=== PATIENT | male | born 1935 | race Hispanic/Latino ===

== ENCOUNTER 2016-08-26 16:40 | Outpatient (CLI) | payer MEDICARE, OTHER ==
[2016-08-26 17:18] LABS: Albumin 4.1 g/dL (3.9-5); Albumin/Globulin Ratio 1.5 %; BUN/Creatinine Ratio 18.75; Basophils % (Auto) 0.8 % (0.0-1.8); Bilirubin,Total 0.4 mg/dL (0.1-1.2); Calcium 9.4 mg/dL (8.4-10.2); Chloride 100.2 mmol/L (98-107); Eosinophils % (Auto) 4.6 % (0.0-4.3); Hematocrit 42.5 % (35.5-45.6); Hemoglobin 13.9 gm/dl (11.8-15.2); Mean Corpuscular HGB Conc 33 % (32-34); Mean Corpuscular Hemoglobin 30 pg (28-32); Mean Corpuscular Volume 92 fl (84-94); Platelet Count 208 K/mm3 (140-440); Potassium 4.7 mmol/L (3.6-5.0); Red Cell Distribution Width 15.3 % (13.2-15.2); Total Protein 6.8 g/dL (6.3-8.2); White Blood Count 6.5 K/mm3 (4.5-11.0)
[2016-08-29 18:39] LABS: Vitamin D, 25-OH, Total 70 ng/mL (30-100)
== END 2016-08-26 16:41 | disposition home or self-care (01) ==
LOC: LAB 16:40
PROVIDERS: ATTEND Internal Medicine Nephrology
DX: I12.9 Hypertensive chronic kidney disease with stage 1 through stage 4 chronic kidney disease, or unspecified chronic kidney disease (principal); N18.3 Chronic kidney disease, stage 3 (moderate); D64.9 Anemia, unspecified; K21.9 Gastro-esophageal reflux disease without esophagitis; I45.6 Pre-excitation syndrome; E55.9 Vitamin D deficiency, unspecified; R60.9 Edema, unspecified; R80.9 Proteinuria, unspecified; E87.5 Hyperkalemia; F10.10 Alcohol abuse, uncomplicated; R73.01 Impaired fasting glucose
CPT/HCPCS: 36415; 80053; 82043; 82306; 83970; 85025

== ENCOUNTER 2018-02-27 16:17 | Outpatient (CLI) | payer MEDICARE, OTHER ==
[2018-02-27 16:37] LABS: Basophils # (Auto) 0.1 K/mm3 (0.0-0.1); Basophils % (Auto) 0.8 % (0.0-1.8); Eosinophils # (Auto) 0.3 K/mm3 (0.0-0.4); Eosinophils % (Auto) 4.3 % (0.0-4.3); Hematocrit 39.9 % (35.5-45.6); Hemoglobin 13.2 gm/dl (11.8-15.2); Lymphocytes # (Auto) 2.7 K/mm3 (1.2-5.4); Lymphocytes % (Auto) 38.4 % (13.4-35.0); Mean Corpuscular HGB Conc 33 % (32-34); Mean Corpuscular Volume 96 fl (84-94); Monocytes # (Auto) 0.5 K/mm3 (0.0-0.8); Monocytes % (Auto) 6.6 % (0.0-7.3); Platelet Count 200 K/mm3 (140-440); Red Blood Count 4.15 M/mm3 (3.65-5.03); Red Cell Distribution Width 14.6 % (13.2-15.2)
[2018-02-27 16:58] LABS: Bacteria,Urine 1+ /HPF (Negative); Bilirubin,Urine NEG (Negative); Blood,Urine NEG (Negative); Color,Urine Yellow (Yellow); Hyaline Casts,Urine 3 /LPF; Mucus,Urine FEW /HPF; Protein,Urine <15 mg/dL mg/dL (Negative); Urobilinogen,Urine < 2.0 mg/dL (<2.0)
[2018-02-27 17:08] LABS: Albumin 4.3 g/dL (3.9-5); Calcium 9.7 mg/dL (8.4-10.2)
== END 2018-02-27 16:18 | disposition home or self-care (01) ==
LOC: LAB 16:17
PROVIDERS: ATTEND Internal Medicine Nephrology
DX: I12.9 Hypertensive chronic kidney disease with stage 1 through stage 4 chronic kidney disease, or unspecified chronic kidney disease (principal); N18.3 Chronic kidney disease, stage 3 (moderate); K21.9 Gastro-esophageal reflux disease without esophagitis; E55.9 Vitamin D deficiency, unspecified
CPT/HCPCS: 36415; 80048; 81001; 82040; 83970; 84100; 85025

== ENCOUNTER 2018-09-25 10:39 | Outpatient (CLI) | payer MEDICARE, OTHER ==
[2018-09-25 11:04] LABS: Basophils # (Auto) 0.1 K/mm3 (0.0-0.1); Basophils % (Auto) 0.9 % (0.0-1.8); Eosinophils # (Auto) 0.3 K/mm3 (0.0-0.4); Hematocrit 41.3 % (35.5-45.6); Hemoglobin 14.1 gm/dl (11.8-15.2); Lymphocytes # (Auto) 2.5 K/mm3 (1.2-5.4); Mean Corpuscular HGB Conc 34 % (32-34); Mean Corpuscular Volume 95 fl (84-94); Monocytes # (Auto) 0.4 K/mm3 (0.0-0.8); Monocytes % (Auto) 5.4 % (0.0-7.3); Platelet Count 256 K/mm3 (140-440); Red Blood Count 4.37 M/mm3 (3.65-5.03); Red Cell Distribution Width 14.8 % (13.2-15.2)
[2018-09-25 11:30] LABS: Albumin 4.7 g/dL (3.9-5); Calcium 11.5 mg/dL (8.4-10.2)
== END 2018-09-25 10:40 | disposition home or self-care (01) ==
LOC: LAB 10:39
PROVIDERS: ATTEND Internal Medicine Nephrology
DX: I12.9 Hypertensive chronic kidney disease with stage 1 through stage 4 chronic kidney disease, or unspecified chronic kidney disease (principal); N18.3 Chronic kidney disease, stage 3 (moderate); R60.9 Edema, unspecified; D64.9 Anemia, unspecified; I45.6 Pre-excitation syndrome; E87.5 Hyperkalemia; E55.9 Vitamin D deficiency, unspecified
CPT/HCPCS: 36415; 80053; 83735; 85025

== ENCOUNTER 2018-10-24 14:18 | Outpatient (CLI) | payer MEDICARE, OTHER ==
[2018-10-24 16:37] LABS: Albumin 4.9 g/dL (3.9-5); Calcium 10.6 mg/dL (8.4-10.2)
--- NOTE | 2018-10-24 17:49 | Ultrasound Report ---
ULTRASOUND RENAL INDICATION: N18.3 CKD STAGE 3. COMPARISON: Ultrasound dated 05/08/2015. FINDINGS: RIGHT KIDNEY: Size: 9.7 cm. Echogenicity: Normal. Cortical thickness: Normal. Stones: None. Hydronephrosis: None. Cyst or mass: There is a 1.8 cm cyst. LEFT KIDNEY: Size: 10.4 cm. Echogenicity: Normal. Cortical thickness: Normal. Stones: None. Hydronephrosis: None. Cyst or mass: There is a 2.5 cm cyst and a 1.3 cm cyst. Urinary Bladder: No significant abnormality. Prevoid bladder volume is 303 cc. Post void volume is 25 cc. Free Fluid: None. Additional Findings: None. IMPRESSION 1. No acute sonographic abnormality of the kidneys. Signer Name: Real Villavicencio MD Signed: 10/24/2018 5:44 PM Workstation Name: [id number]
[2018-10-27 22:30] LABS: Albumin 4.6 g/dL (3.8-4.8); Gamma Globulin 0.9 g/dL (0.8-1.7)
[2018-10-28 19:17] LABS: Vitamin D, 25-OH, D2 <4 ng/mL
== END 2018-10-24 14:19 | disposition home or self-care (01) ==
LOC: US 14:18
PROVIDERS: ATTEND Internal Medicine Nephrology
DX: N28.1 Cyst of kidney, acquired (principal); N18.3 Chronic kidney disease, stage 3 (moderate); R97.20 Elevated prostate specific antigen [PSA]
CPT/HCPCS: 36415; 76770; 76857; 80048; 82040; 82306; 83970; 84100; 84153; 84165; 86334

== ENCOUNTER 2019-04-19 17:14 | Outpatient (CLI) | payer MEDICARE, OTHER ==
[2019-04-19 17:47] LABS: Basophils # (Auto) 0.1 K/mm3 (0.0-0.1); Basophils % (Auto) 1.3 % (0.0-1.8); Eosinophils # (Auto) 0.3 K/mm3 (0.0-0.4); Eosinophils % (Auto) 4.2 % (0.0-4.3); Hematocrit 38.7 % (35.5-45.6); Hemoglobin 13.2 gm/dl (11.8-15.2); Lymphocytes # (Auto) 2.4 K/mm3 (1.2-5.4); Lymphocytes % (Auto) 36.4 % (13.4-35.0); Mean Corpuscular HGB Conc 34 % (32-34); Mean Corpuscular Volume 92 fl (84-94); Monocytes # (Auto) 0.5 K/mm3 (0.0-0.8); Monocytes % (Auto) 7.1 % (0.0-7.3); Platelet Count 219 K/mm3 (140-440); Red Blood Count 4.21 M/mm3 (3.65-5.03); Red Cell Distribution Width 13.9 % (13.2-15.2)
[2019-04-19 18:12] LABS: Albumin 4.5 g/dL (3.9-5); Calcium 10.4 mg/dL (8.4-10.2)
== END 2019-04-19 17:15 | disposition home or self-care (01) ==
LOC: LAB 17:14
PROVIDERS: ATTEND Internal Medicine Nephrology
DX: I12.9 Hypertensive chronic kidney disease with stage 1 through stage 4 chronic kidney disease, or unspecified chronic kidney disease (principal); N18.3 Chronic kidney disease, stage 3 (moderate); R60.9 Edema, unspecified; D64.9 Anemia, unspecified; R80.9 Proteinuria, unspecified; I45.6 Pre-excitation syndrome; K21.9 Gastro-esophageal reflux disease without esophagitis; E87.5 Hyperkalemia; E55.9 Vitamin D deficiency, unspecified; F10.10 Alcohol abuse, uncomplicated; R73.01 Impaired fasting glucose; E83.52 Hypercalcemia; R97.20 Elevated prostate specific antigen [PSA]
CPT/HCPCS: 36415; 80053; 84153; 85025

== ENCOUNTER 2020-03-03 06:43 | Day surgery (SDC) | payer MEDICARE, OTHER ==
[2020-03-03] MEDS ORDERED: ASPIRIN EC 325 MG TAB PO SCH (08:00)
[2020-03-03] MEDS ORDERED: SODIUM CHLORIDE 0.9% 500 ML 500 ML IV SCH (08:00)
[2020-03-03 08:14] LABS: Basophils # (Auto) 0.1 K/mm3 (0.0-0.1); Basophils % (Auto) 1.2 % (0.0-1.8); Eosinophils # (Auto) 0.3 K/mm3 (0.0-0.4); Eosinophils % (Auto) 4.4 % (0.0-4.3); Hematocrit 26.1 % (35.5-45.6); Hemoglobin 8.7 gm/dl (11.8-15.2); Lymphocytes # (Auto) 2.2 K/mm3 (1.2-5.4); Lymphocytes % (Auto) 32.2 % (13.4-35.0); Mean Corpuscular HGB Conc 34 % (32-34); Mean Corpuscular Volume 86 fl (84-94); Monocytes # (Auto) 0.6 K/mm3 (0.0-0.8); Monocytes % (Auto) 8.1 % (0.0-7.3); Platelet Count 250 K/mm3 (140-440); Red Blood Count 3.04 M/mm3 (3.65-5.03); Red Cell Distribution Width 14.9 % (13.2-15.2)
[2020-03-03 08:26] LABS: Calcium 9.7 mg/dL (8.4-10.2)
[2020-03-03 08:27] LABS: INR 1.23 (0.87-1.13)
[2020-03-03] MEDS ORDERED: HEPARIN 10,000 UNITS/10 ML VIAL ONE (08:54)
[2020-03-03] MEDS ORDERED: HEPARIN/NS 5000 UNIT/500ML 1,000 ML IR ONE (08:54)
[2020-03-03] MEDS ORDERED: LIDOCAINE (2%) 20 MG/1 ML VIAL 20 ML MDV INFILTRATI ONE (08:55)
[2020-03-03] MEDS ORDERED: VERAPAMIL 5 MG/2 ML INJ ONE (08:55)
[2020-03-03] MEDS ORDERED: fentaNYL 100 MCG/2 ML INJ ONE (08:56)
[2020-03-03] MEDS ORDERED: MIDAZOLAM 2 MG/2 ML INJ ONE (08:56)
[2020-03-03] MEDS ORDERED: NITROGLYCERIN SYRINGE 3 ML ONE (08:56)
--- NOTE | 2020-03-03 10:50 | Cardiac Catherization Report ---
CARDIAC CATHETERIZATION REFERRING PHYSICIAN: Dr. Keerthi Raza. INDICATION FOR PROCEDURE: The patient is a pleasant 85-year-old gentleman, who was found to have severe aortic stenosis. He has known chronic kidney disease, referred here for left heart catheterization to further evaluate for prevalvular replacement. Risks, benefits, alternatives discussed. He does have chronic kidney disease and the most judicious use of dye is recognized. PROCEDURE IN DETAIL: The patient was brought to catheterization lab in a postabsorptive state, prepped and draped in sterile fashion. José's test in right hand was normal. A 2 mL of 2% lidocaine used to anesthetize the right wrist. A standard 6-Turkish hydrophilic sheath used to cannulate the right radial artery via modified Seldinger technique. All exchanges performed to exchange a J-tip guidewire. JL3.5 catheter used to engage the left main without difficulty. Cineangiography performed in all projections. No dampening. Next, catheter exchanged for JR4 catheter used to cross the aortic valve under fluoroscopic guidance. Left ventriculography was performed in 30 ROSE and 30 [place]AL[place] projections via hand injections, catheter flushed. Manual pullback performed with continuous pressure monitoring and engaged the right coronary. No dampening or ventricularization. Cineangiography performed in all projections. Next, catheter removed from the body of wire, sheath removed. Manual pressure used to achieve hemostasis. I directly supervised the administration of moderate sedation from 9:20 a.m. to 10:00 a.m. with fentanyl and Versed. No immediate complications. DATA: Aortic pressure is 210. LVEDP of 20 mmHg. Left ventriculography reveals normal left ventricular systolic performance, estimated ejection fraction of 60-65%. CORONARY ANATOMY: Right dominant system. Right coronary is a large vessel, courses AV groove, distally bifurcates into posterior and posterolateral branches. No discrete stenoses. Left main without significant disease, bifurcates left anterior descending and left circumflex. LAD is a moderate sized vessel, courses anterior intraventricular groove, wraps around the apex, no significant disease. Left circumflex, moderate sized vessel, courses AV groove. No significant disease. CONCLUSIONS: 1. No angiographic evidence of significant epicardial coronary disease in this right dominant system. 2. Normal left ventricular systolic performance, estimated ejection fraction of 60-65%. 3. Severe valvular aortic stenosis with a [id number] gradient of approximately 85-90 mmHg and a mean gradient of approximately 50 mmHg. I believe the patient has symptomatic severe aortic stenosis. He is also found to be mildly anemic today with a hemoglobin of 8.7, unclear of the chronicity, sees Dr. Paiz of Nephrology as his primary. I spoke with his son at length via telephone. He will be set up to see the TAVR clinic at [facility] to be evaluated for possible TAVR. Furthermore, his anemia will be addressed by his primary physician. The patient denies any recent black tarry stools or bright red blood per rectum or any obvious bleeding sources. Again, this is all discussed with his son who had multiple questions, which were answered. Follow up with Dr. Keerthi Raza in the office. JOB# [id number] VIKTORIA/MARY DELUNA
--- NOTE | 2020-03-03 11:10 | Short Stay Summary ---
Short Stay Documentation Date of service: 03/03/20 - History H&P: obtained from office - Allergies and Medications Current Medications: Allergies tetanus toxoid, adsorbed Allergy (Verified 03/03/20 07:40) Muscle numbness Oral contrast Allergy (Uncoded 03/03/20 07:40) Diarrhea Home Medications Medication Instructions Recorded Confirmed Last Taken Type Atorvastatin [Lipitor] 40 mg PO QHS 03/03/20 03/03/20 03/02/20 History 40 mg B Complex 11/Folic/C/Biot/Zinc 1 tab PO DAILY 03/03/20 03/03/20 03/02/20 History [Dialyvite with Zinc Tablet] 1 Desitin Multi-Purpose 1 tab PO DAILY 03/03/20 03/03/20 03/02/20 History 1 Lansoprazole [Prevacid] 30 mg PO DAILY 03/03/20 03/03/20 03/02/20 History 30 mg Tamsulosin [Flomax] 0.4 mg PO QDAY 03/03/20 03/03/20 03/02/20 History 0.4mg Thiamine [Vitamin B-1] 100 mg PO DAILY 03/03/20 03/03/20 03/02/20 History 100 mg Warfarin [Coumadin] 3 mg PO DAILY 03/03/20 03/03/20 02/27/20 History 3 mg carvediloL [Coreg] 12.5 mg PO BID 03/03/20 03/03/20 03/02/20 History 12.5mg clonazePAM [Klonopin] 1 mg PO BID 03/03/20 03/03/20 03/02/20 History 1 mg diphenhydrAMINE [Benadryl CAP] 25 mg PO QHS PRN 03/03/20 03/03/20 Unknown Hist ory polyethylene glycoL 3350 [Miralax 17 gm PO DAILY 03/03/20 03/03/20 03/02/20 History 3350] 17 gm Active Medications Aspirin (Aspirin Ec 325 Mg Tab) 325 mg PO ONCE WALT Stop: 03/03/20 15:00 Sodium Chloride (Nacl 0.9% 500 Ml) 500 mls @ 50 mls/hr IV DIRECT WALT Stop: 03/03/20 17:59 Last Admin: 03/03/20 09:05 Dose: 50 mls/hr Documented by: - Brief post op/procedure progress note Date of procedure: 03/03/20 Pre-op diagnosis: Post-op diagnosis: same Procedure: C - see dictated cath report Anesthesia: local Estimated blood loss: none Condition: stable - Disposition Condition at discharge: Good Disposition: [id number] TO HOME OR SELFCARE - Discharge Diagnoses (1) Aortic stenosis Status: Chronic (2) CKD (chronic kidney disease) Status: Chronic Short Stay Discharge Plan Activity: advance as tolerated Diet: low fat, low cholesterol, low salt Wound: open to air, keep clean and dry, per your surgeon's advice Follow up with: MAXIMINO DOTY MD [Primary Care Provider] - 7 Days
[2020-03-03 14:09] VITALS: BP 130/61
== END 2020-03-03 13:30 | disposition home or self-care (01) ==
LOC: CATHLABREC 06:43
PROVIDERS: ATTEND Internal Medicine
DX: I35.0 Nonrheumatic aortic (valve) stenosis (principal); I25.10 Atherosclerotic heart disease of native coronary artery without angina pectoris; E78.5 Hyperlipidemia, unspecified; I12.9 Hypertensive chronic kidney disease with stage 1 through stage 4 chronic kidney disease, or unspecified chronic kidney disease; N18.9 Chronic kidney disease, unspecified; I80.12 Phlebitis and thrombophlebitis of left femoral vein; K21.9 Gastro-esophageal reflux disease without esophagitis; D64.9 Anemia, unspecified; Z88.8 Allergy status to other drugs, medicaments and biological substances; Z79.899 Other long term (current) drug therapy; Z86.718 Personal history of other venous thrombosis and embolism; Z85.46 Personal history of malignant neoplasm of prostate; Z87.442 Personal history of urinary calculi; Z98.890 Other specified postprocedural states
CPT/HCPCS: 36415; 80048; 85025; 85610; 85730; 93005; 93458; 99156; 99157; C1769; C1894; J1644; J2250; J3010; J7040; Q9967

== ENCOUNTER 2020-04-08 15:25 | Outpatient (CLI) | payer MEDICARE, OTHER ==
[2020-04-08 16:30] LABS: Basophils # (Auto) 0.1 K/mm3 (0.0-0.1); Basophils % (Auto) 1.1 % (0.0-1.8); Eosinophils # (Auto) 0.3 K/mm3 (0.0-0.4); Eosinophils % (Auto) 4.7 % (0.0-4.3); Hemoglobin 10.1 gm/dl (11.8-15.2); Lymphocytes # (Auto) 2.7 K/mm3 (1.2-5.4); Mean Corpuscular HGB Conc 33 % (32-34); Mean Corpuscular Volume 83 fl (84-94); Monocytes # (Auto) 0.5 K/mm3 (0.0-0.8); Monocytes % (Auto) 7.8 % (0.0-7.3); Platelet Count 220 K/mm3 (140-440); Red Blood Count 3.73 M/mm3 (3.65-5.03); Red Cell Distribution Width 15.8 % (13.2-15.2)
[2020-04-08 17:05] LABS: Albumin 4.2 g/dL (3.9-5); Calcium 9.6 mg/dL (8.4-10.2)
== END 2020-04-08 15:26 | disposition home or self-care (01) ==
LOC: LAB 15:25
PROVIDERS: ATTEND Internal Medicine Nephrology
DX: I12.9 Hypertensive chronic kidney disease with stage 1 through stage 4 chronic kidney disease, or unspecified chronic kidney disease (principal); N18.30 Chronic kidney disease, stage 3 unspecified; D64.9 Anemia, unspecified; R60.9 Edema, unspecified; R80.9 Proteinuria, unspecified; I45.6 Pre-excitation syndrome; K21.9 Gastro-esophageal reflux disease without esophagitis; E87.5 Hyperkalemia; E55.9 Vitamin D deficiency, unspecified; F10.10 Alcohol abuse, uncomplicated; R73.01 Impaired fasting glucose; E83.51 Hypocalcemia; R97.20 Elevated prostate specific antigen [PSA]
CPT/HCPCS: 36415; 80053; 82306; 83970; 85025

== ENCOUNTER 2020-07-17 15:16 | Outpatient (CLI) | payer MEDICARE, OTHER ==
[2020-07-17 16:18] LABS: Albumin 3.8 g/dL (3.9-5); Calcium 9.3 mg/dL (8.4-10.2)
== END 2020-07-17 15:17 | disposition home or self-care (01) ==
LOC: LAB 15:16
PROVIDERS: ATTEND Internal Medicine Nephrology
DX: I12.9 Hypertensive chronic kidney disease with stage 1 through stage 4 chronic kidney disease, or unspecified chronic kidney disease (principal); N18.30 Chronic kidney disease, stage 3 unspecified; R60.9 Edema, unspecified; D64.9 Anemia, unspecified; R80.9 Proteinuria, unspecified; I45.6 Pre-excitation syndrome; K21.9 Gastro-esophageal reflux disease without esophagitis; E87.5 Hyperkalemia; E55.9 Vitamin D deficiency, unspecified; F10.10 Alcohol abuse, uncomplicated; R73.01 Impaired fasting glucose; R97.20 Elevated prostate specific antigen [PSA]
CPT/HCPCS: 36415; 80053; 84100

== ENCOUNTER 2020-11-27 15:24 | Outpatient (CLI) | payer MEDICARE, OTHER ==
[2020-11-27 16:27] LABS: Basophils # (Auto) 0.1 K/mm3 (0.0-0.1); Eosinophils # (Auto) 0.4 K/mm3 (0.0-0.4); Eosinophils % (Auto) 6.2 % (0.0-4.3); Hematocrit 35.8 % (35.5-45.6); Hemoglobin 12.1 gm/dl (11.8-15.2); Lymphocytes # (Auto) 2.2 K/mm3 (1.2-5.4); Lymphocytes % (Auto) 32.6 % (13.4-35.0); Mean Corpuscular HGB Conc 34 % (32-34); Mean Corpuscular Volume 94 fl (84-94); Monocytes # (Auto) 0.5 K/mm3 (0.0-0.8); Platelet Count 158 K/mm3 (140-440); Red Cell Distribution Width 14.6 % (13.2-15.2)
[2020-11-27 16:58] LABS: Albumin 3.8 g/dL (3.9-5); Calcium 9.6 mg/dL (8.4-10.2)
[2020-11-27 17:33] LABS: Creatinine,Urine 96.7 mg/dL (0.1-20.0); Microalbumin/Creatinine Ratio 12.4 ug/mg
== END 2020-11-27 15:25 | disposition home or self-care (01) ==
LOC: LAB 15:24
PROVIDERS: ATTEND Internal Medicine Nephrology
DX: I12.9 Hypertensive chronic kidney disease with stage 1 through stage 4 chronic kidney disease, or unspecified chronic kidney disease (principal); N18.30 Chronic kidney disease, stage 3 unspecified; R60.9 Edema, unspecified; D64.9 Anemia, unspecified; R80.9 Proteinuria, unspecified; I45.6 Pre-excitation syndrome; K21.9 Gastro-esophageal reflux disease without esophagitis; R73.01 Impaired fasting glucose; E83.52 Hypercalcemia; R97.20 Elevated prostate specific antigen [PSA]; E78.5 Hyperlipidemia, unspecified; E55.9 Vitamin D deficiency, unspecified; F10.10 Alcohol abuse, uncomplicated
CPT/HCPCS: 36415; 80053; 82043; 83970; 85025

== ENCOUNTER 2021-02-11 10:53 | Outpatient (CLI) | payer MEDICARE, OTHER ==
[2021-02-11 11:58] LABS: Basophils # (Auto) 0.1 K/mm3 (0.0-0.1); Basophils % (Auto) 1.1 % (0.0-1.8); Eosinophils # (Auto) 0.3 K/mm3 (0.0-0.4); Eosinophils % (Auto) 4.9 % (0.0-4.3); Hematocrit 37.6 % (35.5-45.6); Hemoglobin 12.2 gm/dl (11.8-15.2); Lymphocytes # (Auto) 2.4 K/mm3 (1.2-5.4); Lymphocytes % (Auto) 43.6 % (13.4-35.0); Mean Corpuscular HGB Conc 33 % (32-34); Mean Corpuscular Volume 94 fl (84-94); Monocytes # (Auto) 0.3 K/mm3 (0.0-0.8); Monocytes % (Auto) 6.4 % (0.0-7.3); Platelet Count 196 K/mm3 (140-440); Red Blood Count 4.03 M/mm3 (3.65-5.03); Red Cell Distribution Width 14.8 % (13.2-15.2)
[2021-02-11 12:14] LABS: Calcium 9.5 mg/dL (8.4-10.2)
== END 2021-02-11 10:54 | disposition home or self-care (01) ==
LOC: LAB 10:53
PROVIDERS: ATTEND Internal Medicine Nephrology
DX: I12.9 Hypertensive chronic kidney disease with stage 1 through stage 4 chronic kidney disease, or unspecified chronic kidney disease (principal); E83.52 Hypercalcemia; R73.01 Impaired fasting glucose; N18.30 Chronic kidney disease, stage 3 unspecified; R60.9 Edema, unspecified; D64.9 Anemia, unspecified; I45.6 Pre-excitation syndrome; K21.9 Gastro-esophageal reflux disease without esophagitis; E87.5 Hyperkalemia; E55.9 Vitamin D deficiency, unspecified; F10.10 Alcohol abuse, uncomplicated; R97.20 Elevated prostate specific antigen [PSA]
CPT/HCPCS: 36415; 80048; 82040; 84100; 84443; 85025

== ENCOUNTER 2021-02-23 14:56 | Outpatient (CLI) | payer MEDICARE, OTHER | END 2021-02-23 14:57 | disposition home or self-care (01) | LOC: LAB 14:56 | PROVIDERS: ATTEND Internal Medicine Nephrology | DX: I12.9 Hypertensive chronic kidney disease with stage 1 through stage 4 chronic kidney disease, or unspecified chronic kidney disease (principal); N18.30 Chronic kidney disease, stage 3 unspecified; R60.9 Edema, unspecified; D64.9 Anemia, unspecified; R80.9 Proteinuria, unspecified; I45.9 Conduction disorder, unspecified; K21.9 Gastro-esophageal reflux disease without esophagitis; E55.9 Vitamin D deficiency, unspecified; F10.10 Alcohol abuse, uncomplicated; R73.01 Impaired fasting glucose; E83.52 Hypercalcemia; R97.20 Elevated prostate specific antigen [PSA] | CPT/HCPCS: 36415; 84132 ==

== ENCOUNTER 2021-09-03 15:13 | Outpatient (CLI) | payer MEDICARE, OTHER ==
[2021-09-03 15:57] LABS: Basophils # (Auto) 0.1 K/mm3 (0.0-0.1); Eosinophils # (Auto) 0.2 K/mm3 (0.0-0.4); Eosinophils % (Auto) 3.8 % (0.0-4.3); Hematocrit 41.6 % (35.5-45.6); Hemoglobin 14.2 gm/dl (11.8-15.2); Lymphocytes # (Auto) 3.1 K/mm3 (1.2-5.4); Lymphocytes % (Auto) 49.7 % (13.4-35.0); Mean Corpuscular HGB Conc 34 % (32-34); Mean Corpuscular Volume 93 fl (84-94); Monocytes # (Auto) 0.4 K/mm3 (0.0-0.8); Monocytes % (Auto) 5.7 % (0.0-7.3); Platelet Count 187 K/mm3 (140-440); Red Blood Count 4.47 M/mm3 (3.65-5.03); Red Cell Distribution Width 17.5 % (13.2-15.2)
[2021-09-03 16:22] LABS: Albumin 4.6 g/dL (3.9-5); Calcium 10.3 mg/dL (8.4-10.2)
== END 2021-09-03 15:14 | disposition home or self-care (01) ==
LOC: LAB 15:13
PROVIDERS: ATTEND Internal Medicine Nephrology
DX: K21.9 Gastro-esophageal reflux disease without esophagitis (principal); I12.9 Hypertensive chronic kidney disease with stage 1 through stage 4 chronic kidney disease, or unspecified chronic kidney disease; N18.30 Chronic kidney disease, stage 3 unspecified; R80.9 Proteinuria, unspecified; R60.9 Edema, unspecified; D64.9 Anemia, unspecified; I45.6 Pre-excitation syndrome; R97.20 Elevated prostate specific antigen [PSA]
CPT/HCPCS: 36415; 80048; 82040; 83970; 84100; 84153; 85025